=== PATIENT | female | born 1955 | race Caucasian/White ===

== ENCOUNTER 2016-12-06 12:35 | Observation (INO) | payer BC, OTHER ==
[~2016-12-06] VITALS: Ht 170.2 cm; Wt 145.1 kg
--- NOTE | ~2016-12-06 | ESTC ---
Cardiac Perfusion Imaging Demographics Patient Name RADHIKA Morelos Gender Female Patient Number [id number] Race Visit Number [id number] Ethnicity Corporate ID Room Number G6307 Accession Number [id number] Height 67 inches Date of 1955 Weight 319 pounds Physician Mark DOTSON Interpreting Franklin Yuen Date of study 12/07/2016 Physician Supervising /VIDHYA ESPINOSA Technologist Jamie Natarajan Ordering Physician Jake Hernandez Stress Nalini Flores MD tap and die maker technician RDCS, RVT Stress ECG Reading Skylar Chin APRN Nurse Catarino Castillo Physician Procedure Procedure Type: Nuclear Stress Test:Cardiolite Stress Test Procedure Start time: 12/07/2016 09:30 Indications: Chest pain. Risk Factors The patient risk factors include:obesity, former tobacco use, hypercholesterolemia, dyslipidemia and ( years not smokin). Conclusions Impression ECG portion of lexiscan stress test is clinically negative for ischemia by diagnostic criteria. Myocardial perfusion imaging is mildly abnormal. No convincing evidence of ischemia. Small sized fixed defect in apical anterolateral wall. Overall left ventricular systolic function was normal. Calculated LVEF Is 52% and TID ratio is 1.04. There are no previous studies for comparison . Stress Protocols Resting ECG Normal sinus rhythm. Pre-stress physical exam: Patient assessed by Carson MONTANO prior to testing. Predicted HR: 160 bpm HR response: Appropriate BP response: Appropriate Reason for termination:Infusion complete ECG Findings No ECG changes suggestive of ischemia. Arrhythmias No rhythm abnormality. Symptoms Shortness of breath. Warm flushing sensation. Complications Procedure complication: None. Stress Interpretation Appropriate hemodynamic response to Lexiscan. No significant ST-T wave changes with Lexiscan. ECG portion is negative for ischemia by diagnostic criteria. Will correlate with nuclear images. Imaging Results Summed scores - Summed stress score: 8 - Summed rest score: 5 - Summed difference score: 3 Stress ejection Ejection fraction:52 % EDV :125 ml ESV :60 ml Stroke volume :65 ml LV mass :140 gr Imaging Protocols Rest Stress Isotope:Tc99m Sestamibi IV Isotope: Tc99m Sestamibi IV Isotope dose:16.2 mCi Isotope dose:48.1 mCi Date:12/07/2016 07:26 Date:12/07/2016 09:27 Technique: SPECT Technique: Gated Supine SPECT Supine IV remains in place after procedure. Scan Time:45-60 minutes post Scan Time:45-60 minutes post injection injection Procedure Medications - Regadenoson (Lexiscan) 0.4 mg IV over 10-15 sec. I.V. 0.4 mg. Medical History Admission Data Admission date: 12/06/2016 Admission Time: 14:07 Hospital Status: Inpatient. Signatures dtt: BRAYAN FRANK dtd: 12/07/16 0930 Physician Self Edit
--- NOTE | ~2016-12-06 | ER ---
PATIENT'S NAME: ANIYA GARRIDO [facility] AGE: 61 Y [address] ROOM: [place] [address] LOCATION: GPCU ADMIT DATE: 12/06/2016 ER/Outpatient Report DISCHARGE DATE: FAMILY PHYSICIAN: Fernando Kilgore MD ATTENDING PHYSICIAN: Fernando Kilgore Time of Arrival: 1235 hours. Time of Evaluation: 1238 hours. CHIEF COMPLAINT: Chest pain. HISTORY OF PRESENT ILLNESS: The patient is a 61-year-old female who presents to the emergency department today with chief complaint of chest pain. She reports it is a pressure type pain, it is in her chest, currently 5/10 in severity. She reports it went into her left arm. She does report some shortness of breath with this as well. She does report feeling tired with it. She reports that it got worse whenever she was trying to cook or walks. Denies any fevers or chills. Does have some nausea. No vomiting. No diarrhea or constipation. PAST MEDICAL HISTORY: Depression, obesity. PAST SURGICAL HISTORY: Thyroidectomy, lap band, cholecystectomy, hysterectomy. SOCIAL HISTORY: The patient denies any tobacco, alcohol, or illicit drug use. FAMILY HISTORY: Congestive heart failure in her mother. No early DC. ALLERGIES: NO KNOWN DRUG ALLERGIES. MEDICATIONS: Please see list. REVIEW OF SYSTEMS: All systems are reviewed by myself and negative with the exception of those discussed in HPI and past medical history. PHYSICAL EXAMINATION: VITAL SIGNS: Weight 143 kg, blood pressure 146/84, pulse is 70, respiratory PATIENT'S NAME: ANIYA GARRIDO [facility] AGE: 61 Y [address] ROOM: [place] [address] LOCATION: GPCU ADMIT DATE: 12/06/2016 ER/Outpatient Report DISCHARGE DATE: FAMILY PHYSICIAN: Fernando Kilgore MD ATTENDING PHYSICIAN: Fernando Kilgore rate 16, temperature 98.2, oxygen saturation 95% on room air. GENERAL: The patient is a 61-year-old female, appears stated age, in no acute distress. She is obese. HEENT: Normocephalic, atraumatic. NECK: Supple. There is no nuchal rigidity. CARDIOVASCULAR: Regular rate and rhythm. No murmurs, rubs, or gallops. LUNGS: Clear to auscultation bilaterally. No wheezes, rales, or rhonchi. ABDOMEN: Soft, nontender, and nondistended. No rebound, rigidity, or guarding. MUSCULOSKELETAL: The patient moves all 4 extremities. 2+ pretibial edema of bilateral extremities. SKIN: Warm and dry. No other rashes or lesions are noted. LABORATORY DATA AND X-RAYS: CBC is unremarkable. CMP is unremarkable. LFT is normal. Magnesium is normal. CK and cardiac enzymes are normal. ProBNP is normal. Coags are unremarkable. D-dimer is normal. EKG is obtained, is interpreted by myself, shows sinus rhythm with a rate of 75, normal axis, normal interval. No ST elevation, ST depression, or T-wave inversions. Chest x-ray shows no acute process. IMPRESSION: 1. Chest pain, rule out acute coronary syndrome. 2. Initial visit. EMERGENCY DEPARTMENT COURSE: The patient was brought back to the examination room. Seen and evaluated by myself. IV is established. Laboratory analysis and imaging are obtained as described above. The patient is given 4 baby aspirin orally, is given 2 nitroglycerin sublingually. This has resulted in complete resolution of the patient's symptoms. I have discussed results with the patient. With the patient's concerning history as well as the patient's morbid obesity, her age, she does have a HEART score of 4 which does put her at moderate risk of MACE at 12% to 16.6%. I have discussed the case with Dr. Murray, who is on-call for the patient's primary care doctor. She does agree to accept the patient for further evaluation, treatment, and management. DISPOSITION: The patient is admitted under the care of Dr. Murray in stable condition. JOCELIN SLOAN DO PATIENT'S NAME: ANIYA GARRIDO [facility] AGE: 61 Y [address] ROOM: G6307 [place], [place] [address] [facility] ADMIT DATE: 12/06/2016 ER/Outpatient Report DISCHARGE DATE: FAMILY PHYSICIAN: Fernando Kilgore MD ATTENDING PHYSICIAN: Fernando Kilgore/modl /[id number] d: 12/06/16 2322 t: 12/07/16 1439, OUTPATIENT REPORT
--- NOTE | ~2016-12-06 | HP ---
PATIENT'S NAME: KEYLA GARRIDO [facility] AGE: 61 Y [address] ROOM: [place] [address] LOCATION: GPCU ADMIT DATE: 12/06/2016 History & Physical DISCHARGE DATE: FAMILY PHYSICIAN: Fernando Kilgore MD ATTENDING PHYSICIAN: Fernando Kilgore DATE OF SERVICE: CHIEF COMPLAINT: Chest pain. HISTORY OF PRESENT ILLNESS: Keyla is a 61-year-old female who had onset of left arm numbness and tingling for about 5 to 10 minutes yesterday morning at 8:00 a.m., it went away and then she had some chest heaviness that occurred off and on all day yesterday. She did not have to work, so she just rested, and then she tried to go to work today, and she had trouble breathing, had diaphoresis, felt dizzy and worsening of her chest pressure. She came to the [facility] to be looked at, but her symptoms were extremely suspicious, so she was sent over to [facility] Emergency Room to be worked up. Initial workup included a normal EKG and negative enzymes; however, she was admitted for acute coronary syndrome. She was given aspirin and 2 nitroglycerin tablets in the ER and had complete resolution of her symptoms. She has never had anything like this to this degree before. In 2010, she had some chest pain, went to [facility], and had a negative workup at that time. She changed jobs and had no further chest discomfort. Risk factors include hyperlipidemia and morbid obesity. No history of hypertension, diabetes, and she does not smoke. FAMILY HISTORY: Negative for premature heart disease. OPERATIONS: She had a cholecystectomy in February 2014; hysterectomy for fibroids and excessive bleeding in 1997; lap band in 2005, done in [place], and she has not had much followup; thyroidectomy in 2003. ILLNESSES: Include hyperlipidemia, hypothyroidism, morbid obesity, and depression. CURRENT MEDICATIONS: She is on: 1. Levothyroxine 175 mcg daily. 2. Sertraline 50 mg daily. PATIENT'S NAME: KEYLA GARRIDO [facility] AGE: 61 Y [address] ROOM: [place] [address] LOCATION: GPCU ADMIT DATE: 12/06/2016 History & Physical DISCHARGE DATE: FAMILY PHYSICIAN: Fernando Kilgore MD ATTENDING PHYSICIAN: Fernando Kilgore ALLERGIES: NONE KNOWN. FAMILY HISTORY: Positive for mother dying at age 83. She had CHF. Father of kidney disease at age 73. Diabetes present in mother and a brother. One brother of cirrhosis due to hepatitis C. SOCIAL HISTORY: She is a nonsmoker, quit smoking in 1989. Nondrinker. No history of illicit drug use. She lived in [place] and has moved to [place] 9 years ago. She has 3 children, who are alive and well and 9 grandchildren. 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 REVIEW OF SYSTEMS: GENERAL: She has had weight gain as she has had increased appetite lately. No fevers, chills, or other concerns. ENT: Negative. No vision changes. No sore throat, runny nose, or URI symptoms. CARDIOVASCULAR: See HPI. RESPIRATORY: Negative other than the shortness of breath associated with the chest heaviness today. No coughing, wheezing, or pleuritic pain. She has a history of pneumonia in the past. GI: She has diarrhea off and on and relates to greasy foods. She has not ever had a colonoscopy to her knowledge. She denies heartburn, acid reflux, nausea, or vomiting. : She denies any symptoms other than frequency of urination. No dysuria. No blood in the urine. MUSCULOSKELETAL: She does have arthritis in her knees, which she just lives with at this time. BREASTS: She has a history of a right breast lump but also has many lipomas. PSYCH: She has had significant problems with depression. She saw a therapist, made some changes in her life to decrease stress, and from the sertraline, which all those things have really helped her a lot. PHYSICAL EXAMINATION: GENERAL: Keyla is a well-developed, well-nourished, 7-year-old female. She is alert, cooperative, and currently in no acute distress. She is morbidly obese. VITAL SIGNS: Her blood pressure 143/78, pulse 62, respiratory rate 16, temp 98.2, O2 saturation 94% on room air. Her weight is 143.5 kg, height 5 feet 7 inches. HEENT: Pupils are equal and reactive. Extraocular muscles intact. Sclerae clear. Oropharynx is normal. Mucous membranes are moist. Teeth in fair PATIENT'S NAME: KEYLA GARRIDO [facility] AGE: 61 Y [address] ROOM: G6307 [place], [place] [address] [facility] ADMIT DATE: 12/06/2016 History & Physical DISCHARGE DATE: FAMILY PHYSICIAN: Fernando Kilgore MD ATTENDING PHYSICIAN: Fernando Kilgore repair. NECK: Supple without masses or thyromegaly. HEART: Regular rate and rhythm. No murmurs are appreciated. LUNGS: Cabello are clear in all cabello. ABDOMEN: Soft, obese. No organomegaly, masses, or tenderness. EXTREMITIES: Reveal no pitting edema. DATA: EKG shows sinus rhythm. No focal ST or T-wave changes. Cardiac enzymes are negative. CBC is normal. Chemistry panel is normal. TSH is normal. Chest x- ray is negative. ASSESSMENT: 1. Acute coronary syndrome. 2. Hypothyroidism, on replacement therapy. 3. Depression, stable. 4. Morbid obesity. 5. Hyperlipidemia. PLAN: She is being admitted on the acute coronary syndrome pathway. She has been started on heparin, and Dr. Joseph has consulted. We will check serial enzymes, and if all negative, proceed with a Lexiscan in the morning. She understands the plan and agrees. Prognosis is good. Dr. Kilgore is her usual physician and will assume care in the morning. MD SHIRLEY POLLOCK/august /[id number] D: [id number] T: [id number] HISTORY & PHYSICAL
--- NOTE | ~2016-12-06 | ECHO ---
Transthoracic Echocardiography Report (TTE) Demographics Patient Name ANIYA GARRIDO Date of Study 12/07/2016 Patient Number [id number] Visit Number [id number] Date of 1955 Room Number G6307 Gender Female Number Age 61 year(s) Referring Jake Hernandez Fertilizer Mixer Nalini Flores MD RD, RVT Magui Morelos MD Physician Interpreting [employer] Log[employer] Manager Physician David Flores MD Supervising Ordering [facility] MD/MLP Physician David Flores MD Nurse Stress Field Technical Assistant Conclusions Contractility Score Summary Normal Left Ventricular contractility was noted. Summary Technically difficult exam. The estimated left ventricular ejection fraction is 55%. Mild concentric left ventricular hypertrophy. Diastolic assessment reveals Grade I diastolic dysfunction. No significant valvular abnormalities. Procedure Type of Study TTE procedure:2D Echocardiogram. Procedure Date Date: 12/07/2016 Start: 09:34 AM Study Location: Echo Lab Technical Quality: Adequate visualization Indications:Chest pain. Appropriate Use Criteria: 9 Patient Status: Routine Contrast Medium: Definity. Amount - 4 ml HR: 83 bpm BP: 169/79 mmHg M-Mode/2D Measurements LV Diastolic Dimension: 4.36 cm LV Systolic Dimension: 2.57 cm LV Septum Diastolic: 1.06 cm LV PW Diastolic: 1.08 cm Cardiac Output: 5.98 l/min LA Dimension: 2.5 cm LVOT: 2.1 cm LVOT VTI: 20.8 cm RV Base: 2.77 cm LV Stroke volume: 72.01 ml RV Length: 5.61 cm TAPSE: 2.71 cm TDI-S': 14.3 cm/s Doppler Measurements AV Peak Velocity: 1.42 m/s MV Peak E-Wave: 0.57 m/s AV Peak Gradient: 8.07 mmHg MV Peak A-Wave: 0.79 m/s AV Mean Gradient: 6 mmHg MV E/A Ratio: 0.72 LVOT Peak Velocity: 1.24 m/s MV P1/2t: 92 msec TR Gradient:12.25 mmHg PV Peak Velocity: 1.13 m/s Estimated RAP:15 mmHg PV Peak Gradient: 5.11 mmHg Estimated RVSP: 27 mmHg Estimated PASP: 27.25 mmHg E' Septal Velocity: 0.06 m/s A' Septal Velocity: 0.13 m/s E' Lateral Velocity: 0.07 m/s A' Lateral Velocity: 0.12 m/s Findings Left Ventricle Mild concentric left ventricular hypertrophy. Diastolic assessment reveals Grade I diastolic dysfunction. The left ventricle is mildly dilated . Right Ventricle Normal right ventricle structure and function. Left Atrium The left atrium is mildly dilated. Right Atrium Normal right atrial size. Mitral Valve Normal mitral valve structure and function. Aortic Valve Normal aortic valve structure and function. Tricuspid Valve Trivial tricuspid regurgitation by color Doppler. Pulmonic Valve Normal pulmonic valve structure and function. Pericardial Effusion No evidence of pericardial effusion. Miscellaneous Visualized portions of the aortic root and ascending aorta appear normal in size. Pleural Effusion No evidence of pleural effusion. Contractility Score LV regional wall motion:(0-Non visualized 1-Normal 2-Hypokinesis 3-Akinesis 4-Dyskinesis 5-Aneurysm) Signature dtt: Arben Joseph dtd: 12/07/16 0934 Physician Self Edit
--- NOTE | ~2016-12-06 | CON ---
PATIENT'S NAME: ANIYA GARRIDO [facility] AGE: 61 Y [address] ROOM: [place] [address] LOCATION: GPCU ADMIT DATE: 12/06/2016 Consultation DISCHARGE DATE: FAMILY PHYSICIAN: Fernando Kilgore MD ATTENDING PHYSICIAN: Fernando Kilgore DATE OF CONSULTATION: 12/06/2016 REQUESTING PHYSICIANS: 1. Leatha Murray M.D. 2. Fernando Kilgore M.D. HISTORY OF PRESENT ILLNESS: The patient is a 61-year-old woman, who says yesterday she woke up with numbness in the left upper extremity. She felt like she could slept on it, although that was not the case. Progressively, during the days, she developed substernal pressure and dyspnea on exertion. Also had some diaphoresis. She did not have nausea or vomiting or loss of consciousness. Today, the symptoms persisted at work and presented to the emergency room, where after evaluation she was admitted. Initially, the patient denied ever having similar symptoms, but then after I looked in [employer], she did remember that in 2010 she had another overnight admission with chest discomfort and she had negative enzymes, unremarkable echocardiogram, and normal treadmill stress test, although her exercise tolerance was suboptimal. REVIEW OF SYSTEMS: Otherwise, review of systems is negative. Specifically, she denies any episodes of excessive bleeding. PAST MEDICAL HISTORY: Depression and anxiety. PAST SURGICAL HISTORY: Laparoscopic cholecystectomy in March 2014. Prior to that, she had a lap band procedure, total thyroidectomy for multinodular goiter, and hysterectomy for fibroid. CURRENT MEDICATIONS: 1. Levothyroxine 175 mcg daily. 2. Sertraline 50 mg daily. 3. Meloxicam 7.5 mg daily. 4. She was on aspirin after the 2010 admission, but then it was stopped. SOCIAL HISTORY: She is a cook at the [employer]. She walks at work, but she does PATIENT'S NAME: ANIYA GARRIDO [facility] AGE: 61 Y [address] ROOM: [place] [address] LOCATION: GPCU ADMIT DATE: 12/06/2016 Consultation DISCHARGE DATE: FAMILY PHYSICIAN: Fernando Kilgore MD ATTENDING PHYSICIAN: Fernando Kilgore not have to climb stairs and she does not formally exercise. Lives with boyfriend. She has 3 adult children, who are healthy. She has a [id number] history of smoking, which she quit around 1989. Denies alcohol or drug use. FAMILY HISTORY: Her mother from congestive heart failure at 83, but apparently she did not have coronary artery disease. Her father in his 70s from end-stage renal disease. She has 9 siblings and some of them have hypertension or diabetes, but no history of coronary artery disease is reported. PHYSICAL EXAMINATION: GENERAL: A pleasant, middle-aged woman. VITAL SIGNS: She is 5 feet and 7 inches. Weights 145 kg and appears she has gained about 20 kg since 2010. Her blood pressure was 137/75 with pulse 63. Temperature 97.7. SKIN: There is no jaundice. Skin is warm and dry. GENERAL: She is alert and oriented. HEAD: Normocephalic and atraumatic. NECK: Supple. There is no jugular venous distention. No carotid bruits. No thyromegaly. CHEST: Lungs are clear. HEART: Regular first and second heart sounds. No gallop. No friction rub. No murmur. ABDOMEN: Very obese. Nontender. No masses detected. LOWER EXTREMITIES: No peripheral edema. 1 to 2+ pedal pulses. LABORATORY AND DIAGNOSTIC DATA: Her electrocardiogram shows sinus rhythm, low voltage in the limb leads, mild T-wave changes. General chemistries are unremarkable. Nonfasting glucose is 87. Liver enzymes are normal. Total cholesterol is 243, triglycerides 268, HDL 55, LDL 135, troponin I is less than 0.04, and proBNP is 51. Chest x-ray is reported as normal. The patient was admitted by Dr. Murray and she was started on aspirin, statin, beta-milton, and GENI inhibitor. PLAN: I will schedule an echocardiogram in the a.m. as well as Lexiscan as I do not expect the patient will be able to walk for significant amount of time on the treadmill. Lovenox 40 for DVT prophylaxis. Continue monitoring her troponins. If it turns positive, we will skip the stress test and go directly for coronary angiography. Thank you for allowing me to participate in the care of your patient. PATIENT'S NAME: ANIYA GARRIDO [facility] AGE: 61 Y [address] ROOM: [address]6[facility] [place], [place] [address] LOCATION: [facility] ADMIT DATE: 12/06/2016 Consultation DISCHARGE DATE: FAMILY PHYSICIAN: Fernando Kilgore MD ATTENDING PHYSICIAN: Fernando Kilgore PANROGELIOSJASON RAMOS MD PE/modl /[id number] d: 12/07/16 0146 t: 12/19/16 0823, CONSULTATION REPORT
[2016-12-06 13:03] LABS: BASOPHIL % 0.5 %; EOSINOPHIL # 0.1 K/uL (0.0-0.5); EOSINOPHIL % 1.3 %; HEMATOCRIT 40.7 % (33.0-46.0); HEMOGLOBIN 13.7 g/dL (10.0-15.0); IMMATURE GRANULOCYTE % 0.2 %; LYMPHOCYTE % 34.2 %; MCH 29.1 pg (27.0-34.0); MCHC 33.7 gm/dL (32.0-36.5); MCV 86.4 fl (83.0-98.0); MONOCYTE # 0.4 K/uL (0.0-1.0); MONOCYTE % 6.9 %; MPV 9.8 fl (9.4-12.4); NEUTROPHIL # (ANC) 3.4 K/uL (1.8-7.8); NEUTROPHIL % 56.9 %; NRBC % 0 /100WBC (0-0.00); PLATELET COUNT 213 K/uL (150-450); RBC 4.71 M/uL (3.50-5.50); RDW-CV 13.2 % (11.9-14.6); WBC 5.9 K/uL (4.0-11.0)
[2016-12-06 13:19] LABS: PROTIME 9.4 SECONDS (9.8-11.4); PTT 26 SECONDS (25-32)
[2016-12-06 13:24] LABS: ALBUMIN 3.5 gm/dL (3.5-5.0); ALK PHOS 73 IU/L (33-138); ALT 24 IU/L (12-78); ANION GAP 10.8 (10.0-19.0); AST 15 IU/L (10-40); BLOOD UREA NITROGEN 15 mg/dL (6-24); CALCIUM 8.6 mg/dL (8.5-10.5); CHLORIDE 108 mMol/L (96-110); CO2 27 mMol/L (22-32); CPK 143 IU/L (21-215); CREATININE 0.8 mg/dL (0.5-1.1); ESTIMATED GFR (MDRD EQUATION) > 60; MAGNESIUM 2.5 mg/dL (1.8-2.6); POTASSIUM 3.8 mMol/L (3.7-5.1); SODIUM 142 mMol/L (135-145); TOTAL BILIRUBIN 0.3 mg/dL (0.0-1.5); TOTAL PROTEIN 7.1 g/dL (6.0-8.4)
[2016-12-06 15:21] LABS: CPK 128 IU/L (21-215)
[2016-12-06] MEDS ORDERED: LEVOTHROID(SY175 MCG PO (16:15)
[2016-12-06] MEDS ORDERED: ZOLOFT50 MG PO (16:15)
[2016-12-06] MEDS ORDERED: MOBIC7.5 MG PO (16:16)
--- NOTE | 2016-12-06 17:21 | NUR ---
Patient is 61 yo female admitted w/ chest pain yesterday and today while at work. 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 Lives in [place] w/her boyfriend. patient had pain yesterday, it was better when she would stop and rest. did have some shortness of breath as well. today the pain returned and she went to the clinic, they sent her to the ER. patient has saline lock patent without erythema or edema noted at site in left hand. Education is given as documented. patient and family deny questions. pneumatics are on calves bilat. pt bren well. patient is given advanced directive booklet with directions on use, per her request. call light is within reach. denies questions. Report is given to PRIETO Rodas.
[2016-12-06 19:10] LABS: BILIRUBIN URINE NEGATIVE (NEGATIVE); BLOOD URINE 10 /UL (NEGATIVE); COLOR URINE YELLOW (YELLOW); GLUCOSE URINE NEGATIVE (NEGATIVE); KETONE URINE NEGATIVE (NEGATIVE); LEUKOCYTES URINE NEGATIVE /UL (NEGATIVE); NITRITE URINE NEGATIVE (NEGATIVE); PROTEIN URINE NEGATIVE (NEGATIVE); TURBIDITY URINE CLEAR (CLEAR); UROBILINOGEN URINE NORMAL (NORMAL)
[2016-12-06 19:18] LABS: BACTERIA URINE FEW (NEGATIVE); RBC URINE 0-2 #/HPF (NEGATIVE); WBC URINE NEGATIVE #/HPF (NEGATIVE)
[2016-12-06 21:26] LABS: INR - (THERAPEUTIC) 0.93 (0.92-1.07); PROTIME 9.8 SECONDS (9.8-11.4)
[2016-12-06 21:34] LABS: CPK 116 IU/L (21-215)
[2016-12-07 03:38] LABS: CPK 123 IU/L (21-215)
--- NOTE | 2016-12-07 05:28 | NUR ---
Significant Event: Patient alert and oriented x3. SBP 130s-160s. All other vital signs stable. Dr. Murray saw last night. No new orders. No complaints of chest pain until third assessment. Patient began having chest pressure/pain. Rated 4/10. Did not go away with rest. Nitro gtt started at 5mcg/min at 0420. Currently running at 10mcg/min. Heparin gtt at 1200 units/hr. NPO since midnight. Patient up in room with stand-by assist. Calm and cooperative with all cares. Follow up: Will continue to monitor chest pain/pressure.
[2016-12-07 08:59] LABS: CPK 102 IU/L (21-215)
--- NOTE | 2016-12-07 12:39 | NUR ---
Introduced self and role of care management to patient. She lives in [place] with a friend. She states that she is able to do all her own ADL's. She states that she has family and friends that are available to assist as needed. She plans on returning home on discharge. She denies any needs at this time. Will conitnue to follow.
--- NOTE | 2016-12-07 14:53 | NUR ---
Significant Event: A/O. VSS on RA. Denies pain. Stress test completed. Up with min assist. Follow up: dismissal pending stress results.
[2016-12-07 16:22] LABS: CPK 92 IU/L (21-215)
[2016-12-07] MEDS ORDERED: ASPIRIN325 MG PO (19:27)
[2016-12-07] MEDS ORDERED: LIPITOR80 MG (19:29)
[2016-12-07] MEDS ORDERED: VASOTEC2.5 MG PO (19:29)
[2016-12-07] MEDS ORDERED: LOPRESSOR25 MG PO (19:30)
--- NOTE | 2016-12-07 20:14 | NUR ---
PATIENT DISCHARGED TO HOME AT 1999. VSS. IV DISCONTINUED AND CATHETER INTACT. DISMISSAL INSTRUCTIONS GIVEN INCLUDING FOLLOW-UP APPOINTMENTS, ACTIVITY, CARDIAC DIET, AND NEW MEDICATIONS. PATIENT WHEELED DOWN TO VEHICLE.
== END 2016-12-07 20:18 | disposition disaster alternative care site (69) ==
LOC: GMED 12:35 → GPCU 14:07
PROVIDERS: Emergency Medicine; Family Medicine; ADMIT Family Medicine
DX: R07.9 Chest pain, unspecified (principal); E78.5 Hyperlipidemia, unspecified; E03.9 Hypothyroidism, unspecified; E66.01 Morbid (severe) obesity due to excess calories; F32.9 Major depressive disorder, single episode, unspecified; I10 Essential (primary) hypertension; Z87.891 Personal history of nicotine dependence; Z90.49 Acquired absence of other specified parts of digestive tract; Z90.710 Acquired absence of both cervix and uterus; Z98.890 Other specified postprocedural states; Z79.899 Other long term (current) drug therapy
CPT/HCPCS: A9500; C8929; G0378; J1644; J2785; Q9957